=== PATIENT | male | born 1935 | race Caucasian/White ===

== ENCOUNTER 2019-03-06 07:01 | Emergency (ER) | payer OTHER, MEDICARE ==
[~2019-03-06] VITALS: Ht 165.1 cm; Wt 87.1 kg
[~2019-03-06 07:01] MED LIST: AMPYRA10 MG; AMPYRA10 MG PO; AZAT50 PO; COPAXONE; Co Q-1010 MG PO; DIAZ5EL; FISH1000 PO; FOLBIC RF TABL1 EACH PO; LEVSOD75 PO; MAGOXI400 PO; NAPR500ERA PO; Solu-Medrol1000 MG IJ; TRIHYD253B PO; UROCIT-K15 MEQ PO; [UNRECOGNIZED DRUG - OTHER]; [UNRECOGNIZED DRUG - OTHER]; [UNRECOGNIZED DRUG - REMARK] MC
[2019-03-06 07:20] LABS: Calcium, Ionized (POC) 1.17 mmol/L (1.10-1.46); Chloride (POC) 102 mmol/L (98-108); Creatinine (POC) 1.4 mg/dL (0.8-1.3); Glucose (ISTAT POC) 128 mg/dL (70-99); Potassium (POC) 3.4 mmol/L (3.5-5.5); Sodium (POC) 141 mmol/L (135-148); Total CO2 (POC) 30 mmol/L (21-32)
[2019-03-06 07:22] LABS: BASOPHILS ABSOLUTE AUTO 0.03 K/mm3 (0.00-0.23); BASOPHILS PERCENT AUTO 0 % (0-2); EOSINOPHILS ABSOLUTE AUTO 0.15 K/mm3 (0.00-0.68); EOSINOPHILS PERCENT AUTO 1 % (0-6); Hemoglobin 15.1 g/dL (13.5-17.5); IMMATURE GRAN ABSOLUTE AUTO 0.04 K/mm3 (0.00-0.10); IMMATURE GRAN PERCENT AUTO 0 % (0-1); LYMPHOCYTES ABSOLUTE AUTO 0.59 K/mm3 (0.84-5.20); LYMPHOCYTES PERCENT AUTO 5 % (21-46); MONOCYTES ABSOLUTE AUTO 1.59 K/mm3 (0.16-1.47); MONOCYTES PERCENT AUTO 13 % (4-13); Mean Corpuscular HGB 32.2 pg (26.0-34.0); Mean Corpuscular HGB Conc 33.6 g/dL (31.5-36.5); Mean Corpuscular Volume 96 fL (80-100); Mean Platelet Volume 9.4 fL (9.1-12.4); NEUTROPHILS ABSOLUTE AUTO 9.53 K/mm3 (1.96-9.15); NEUTROPHILS PERCENT AUTO 80 % (41-73); Platelet Count 293 K/mm3 (150-400); RDW Coefficient Variation 13.8 % (11.7-14.2); RDW Standard Deviation 48.5 fL (35.1-46.3); Red Blood Cell Count 4.69 M/mm3 (4.30-5.90); White Blood Cell Count 11.93 K/mm3 (4.00-11.30)
[2019-03-06 07:47] LABS: Albumin, Blood 3.3 g/dL (3.4-5.0); Albumin/Globulin Ratio 0.9 (0.8-1.8); Bilirubin, Total 0.6 mg/dL (0.1-1.0); Bun/Creatinine Ratio 21.9 (12.0-20.0); Calcium, Blood 9.4 mg/dL (8.5-10.1); Creatinine, Blood 1.28 mg/dL (0.60-1.20); Globulin, Blood 3.8 g/dL (2.2-4.0); Potassium, Blood 3.5 mmol/L (3.5-5.5); Total Protein, Blood 7.1 g/dL (6.4-8.2)
[2019-03-06 09:34] LABS: Source, Urine Clean Catch
[2019-03-06 09:36] LABS: Bilirubin, Urine Neg (Neg); Blood, Urine 5+ (Neg); Glucose Qualitative, Urine Neg (Neg); Ketones, Urine Neg (Neg); Leukocyte Esterase, Urine 3+ (Neg); Nitrite, Urine Pos (Neg); Protein, Urine 3+ (Neg); Urobilinogen, Urine NORM (Normal)
[2019-03-06 09:59] LABS: Appearance, Urine Cloudy (Clear); Color, Urine Yellow (P-Yellow)
[2019-03-06 10:01] LABS: Bacteria Many /hpf; Red Blood Cells, Urine 25-50 /hpf (0-2); Squamous Epithelial Cells Few /hpf (Few); White Blood Cells, Urine 50-100 /hpf (0-5)
[2019-03-06] MEDS ORDERED: CEFP200 PO (10:39)
== END 2019-03-06 11:41 | disposition home or self-care (01) ==
LOC: ER 07:01
PROVIDERS: Emergency Medicine
DX: N30.91 Cystitis, unspecified with hematuria (principal); N21.0 Calculus in bladder; D72.829 Elevated white blood cell count, unspecified; Z88.0 Allergy status to penicillin; Z79.899 Other long term (current) drug therapy
CPT/HCPCS: 51701; 74177; 80047; 80053; 81001; 83690; 85014; 85025; 87086; 93005; 93010; 96361-59; 96365-59; 96375-59; 99284-25; J0696; J2405; J3010; J7030; Q9967

== ENCOUNTER 2019-03-28 20:41 | Emergency (ER) | payer OTHER, MEDICARE ==
[~2019-03-28] VITALS: Ht 167.6 cm; Wt 83.9 kg
[~2019-03-28 20:41] MED LIST changes: +CEFP200 PO
== END 2019-03-29 01:22 | disposition home or self-care (01) ==
LOC: ER 20:41
DX: M25.552 Pain in left hip (principal); Z88.0 Allergy status to penicillin; Z79.899 Other long term (current) drug therapy; W18.30XA Fall on same level, unspecified, initial encounter; Y92.002 Bathroom of unspecified non-institutional (private) residence as the place of occurrence of the external cause
CPT/HCPCS: 72192; 73502; 93005; 93010; 99284-25; A9270; A9270-GY

== ENCOUNTER 2021-03-06 22:08 | Inpatient (IN) | payer OTHER ==
[~2021-03-06] VITALS: Ht 175.3 cm; Wt 92.2 kg
[2021-03-06 22:35] LABS: BASOPHILS ABSOLUTE AUTO 0.03 K/mm3 (0.00-0.23); BASOPHILS PERCENT AUTO 0 % (0-2); EOSINOPHILS ABSOLUTE AUTO 0.03 K/mm3 (0.00-0.68); EOSINOPHILS PERCENT AUTO 0 % (0-6); Hemoglobin 15.5 g/dL (13.5-17.5); IMMATURE GRAN ABSOLUTE AUTO 0.09 K/mm3 (0.00-0.10); IMMATURE GRAN PERCENT AUTO 1 % (0-1); LYMPHOCYTES ABSOLUTE AUTO 0.44 K/mm3 (0.84-5.20); LYMPHOCYTES PERCENT AUTO 3 % (21-46); MONOCYTES ABSOLUTE AUTO 0.11 K/mm3 (0.16-1.47); MONOCYTES PERCENT AUTO 1 % (4-13); Mean Corpuscular HGB 31.4 pg (26.0-34.0); Mean Corpuscular HGB Conc 32.3 g/dL (31.5-36.5); Mean Corpuscular Volume 97 fL (80-100); Mean Platelet Volume 9.4 fL (9.1-12.4); NEUTROPHILS ABSOLUTE AUTO 16.16 K/mm3 (1.96-9.15); NEUTROPHILS PERCENT AUTO 96 % (41-73); Platelet Count 338 K/mm3 (150-400); RDW Coefficient Variation 14.1 % (11.7-14.2); Red Blood Cell Count 4.93 M/mm3 (4.30-5.90); White Blood Cell Count 16.86 K/mm3 (4.00-11.30)
[2021-03-06 22:54] LABS: Albumin, Blood 3.3 g/dL (3.4-5.0); Albumin/Globulin Ratio 0.7 (0.8-1.8); Bilirubin, Total 0.6 mg/dL (0.1-1.0); Bun/Creatinine Ratio 18.7 (12.0-20.0); Calcium, Blood 10.1 mg/dL (8.5-10.1); Creatinine, Blood 1.71 mg/dL (0.60-1.20); Globulin, Blood 4.9 g/dL (2.2-4.0); Potassium, Blood 4.3 mmol/L (3.5-5.5); Total Protein, Blood 8.2 g/dL (6.4-8.2)
[2021-03-06 22:55] LABS: Source, Urine Catheter
[2021-03-06 23:11] LABS: Appearance, Urine Cloudy (Clear); Bilirubin, Urine Neg (Neg); Blood, Urine 2+ (Neg); Color, Urine Yellow (P-Yellow); Glucose Qualitative, Urine Neg (Neg); Ketones, Urine Neg (Neg); Leukocyte Esterase, Urine 3+ (Neg); Nitrite, Urine Neg (Neg); Protein, Urine 2+ (Neg); Specific Gravity, Urine 1.015 (1.003-1.022); Urobilinogen, Urine NORM (Normal)
[2021-03-06 23:31] LABS: Amorphous Light (0-Heavy); Bacteria Many /hpf; Squamous Epithelial Cells Rare /hpf (Few); White Blood Cells, Urine 25-50 /hpf (0-5)
[2021-03-06 23:45] LABS: Influenza A, PCR NEGATIVE (NEGATIVE); Influenza B, PCR NEGATIVE (NEGATIVE); Resp Syncytial Virus, PCR NEGATIVE (NEGATIVE); SARS-Cov-2 (COVID-19) PCR, MMC NEGATIVE (NEGATIVE)
[2021-03-07 05:05] LABS: BASOPHILS ABSOLUTE AUTO 0.07 K/mm3 (0.00-0.23); BASOPHILS PERCENT AUTO 0 % (0-2); EOSINOPHILS PERCENT AUTO 0 % (0-6); Hematocrit 38.6 % (37.0-53.0); Hemoglobin 12.9 g/dL (13.5-17.5); IMMATURE GRAN ABSOLUTE AUTO 0.42 K/mm3 (0.00-0.10); IMMATURE GRAN PERCENT AUTO 1 % (0-1); LYMPHOCYTES ABSOLUTE AUTO 0.21 K/mm3 (0.84-5.20); LYMPHOCYTES PERCENT AUTO 1 % (21-46); MONOCYTES ABSOLUTE AUTO 1.38 K/mm3 (0.16-1.47); MONOCYTES PERCENT AUTO 4 % (4-13); Mean Corpuscular HGB 32.4 pg (26.0-34.0); Mean Corpuscular HGB Conc 33.4 g/dL (31.5-36.5); Mean Corpuscular Volume 97 fL (80-100); Mean Platelet Volume 10.2 fL (9.1-12.4); NEUTROPHILS ABSOLUTE AUTO 34.23 K/mm3 (1.96-9.15); NEUTROPHILS PERCENT AUTO 94 % (41-73); Platelet Count 305 K/mm3 (150-400); RDW Coefficient Variation 14.2 % (11.7-14.2); Red Blood Cell Count 3.98 M/mm3 (4.30-5.90); White Blood Cell Count 36.31 K/mm3 (4.00-11.30)
[2021-03-07 05:20] LABS: Calcium, Blood 8.9 mg/dL (8.5-10.1); Creatinine, Blood 1.85 mg/dL (0.60-1.20); Potassium, Blood 3.5 mmol/L (3.5-5.5)
--- NOTE | 2021-03-07 06:26 | NUR ---
ASSUMED CARE OF PATIENT AT 0356. A/OX4. CHRONIC PAIN IN R KNEE 11/13. GENERALIZED WEAKNESS, WHEELCHAIR DEPENDENT AT HOME. MAINTAINING ABOVE 92% ON RA, LS CLEAR UPPER AND DIM AT BASES. PATIENT IS NOTED TO BE TACHYPNEIC WITH RR UP TO 26. ON TELEMETRY ST IN 110'S WITH 1ST DEGREE HB. +1 PEDALS AND RADIALS BL. CONDOM CATH IN PLACE DRAINING CLOUDY YELLOW URINE. BP HAS BEEN SOFT WITH MAP IN 60-65, PATIENT RECEIVED ANOTHER 1L BOLUS AND MAP IMPROVED TO STAYING AROUND 65-70. WILL REPORT TO ONCOMING RN.
[2021-03-07] MEDS ORDERED: FISH OIL PO (10:02)
[2021-03-07] MEDS ORDERED: SYNTHROID75 MCG PO (10:03)
[2021-03-07] MEDS ORDERED: DYAZIDE 37.5-21 EACH PO (10:03)
[2021-03-07] MEDS ORDERED: POTASSIUM CITRA PO (10:03)
[2021-03-07] MEDS ORDERED: AREDS PO (10:05)
--- NOTE | 2021-03-07 11:36 | NUR ---
pt arrivedTO THE MEDICAL FLOOR FROM THE PCU VIA BED. PT IS A/OX3 [place], APPEARS TO BE BREATHING EASILY ON RA AT THIS TIME. PT DENIED HAVING ANY PAIN, THE PT WAS ORIENTED TO THE ROOM CALL SYSTEM. CALL LIGHT IN REACH WILL CONTINUE TO MONITOR AND ASSESS FOR CHANGES
--- NOTE | 2021-03-07 16:42 | NUR ---
PT IS A/OX3, PLEASANT AND COOPERATIVE. [place],. THE PT IS UP WITH ASSIST TO THE BSC. THE APPEARS TO BE BREATHING EASILY AT THIS TIME ON RA. THE PT DENIES ANY PAIN AT THIS TIME. PTS WAS IN TO VISIT THIS AFTERNOON. CALL LIGHT IN REACH. WILL CONTINUE TO MONITOR AND ASSESS FOR CHANGES
--- NOTE | 2021-03-08 04:16 | NUR ---
PROGRAM SUPPORT SPECIALIST SUMMARY ADMITTED FOR UTI/SEPSIS. PT IS FULL CODE. CONTINUED ABX THERAPY. PT IS ALERT AND ORIENTED BUT WAKES UP SLIGHTLY CONFUSED ABOUT TIME. CONTINUED LR AT 100 ML/HR. NO COMPLAINTS OF PAIN. MULTIPLE INCONTINENT VOIDS. NO OTHER CONCERNS THIS SHIFT.
[2021-03-08 04:48] LABS: BASOPHILS ABSOLUTE AUTO 0.03 K/mm3 (0.00-0.23); BASOPHILS PERCENT AUTO 0 % (0-2); EOSINOPHILS PERCENT AUTO 1 % (0-6); Hematocrit 34.4 % (37.0-53.0); Hemoglobin 11.5 g/dL (13.5-17.5); IMMATURE GRAN ABSOLUTE AUTO 0.09 K/mm3 (0.00-0.10); IMMATURE GRAN PERCENT AUTO 1 % (0-1); LYMPHOCYTES ABSOLUTE AUTO 0.72 K/mm3 (0.84-5.20); LYMPHOCYTES PERCENT AUTO 4 % (21-46); MONOCYTES ABSOLUTE AUTO 1.22 K/mm3 (0.16-1.47); MONOCYTES PERCENT AUTO 7 % (4-13); Mean Corpuscular HGB 31.9 pg (26.0-34.0); Mean Corpuscular HGB Conc 33.4 g/dL (31.5-36.5); Mean Corpuscular Volume 96 fL (80-100); Mean Platelet Volume 10.4 fL (9.1-12.4); NEUTROPHILS ABSOLUTE AUTO 14.48 K/mm3 (1.96-9.15); NEUTROPHILS PERCENT AUTO 87 % (41-73); Platelet Count 219 K/mm3 (150-400); RDW Coefficient Variation 14.6 % (11.7-14.2); RDW Standard Deviation 50.8 fL (35.1-46.3); White Blood Cell Count 16.74 K/mm3 (4.00-11.30)
[2021-03-08 05:45] LABS: Alanine Aminotransfer (ALT/SGP 23 U/L (12-78); Albumin, Blood 2.3 g/dL (3.4-5.0); Alk Phos 58 U/L (50-136); Anion Gap 7 mmol/L (6-16); Aspartate Aminotrans (AST/SGOT 17 U/L (12-37); Bilirubin, Total 0.3 mg/dL (0.1-1.0); Blood Urea Nitrogen 33 mg/dL (8-24); Bun/Creatinine Ratio 19.5 (12.0-20.0); CO2, Blood 27 mmol/L (21-32); Calcium, Blood 8.6 mg/dL (8.5-10.1); Chloride, Blood 108 mmol/L (98-108); Creatinine, Blood 1.69 mg/dL (0.60-1.20); Glomerular Filtration Rate 39 (60-); Glucose, Blood 129 mg/dL (70-99); Magnesium, Blood 1.9 mg/dL (1.6-2.4); Potassium, Blood 3.6 mmol/L (3.5-5.5); Sodium, Blood 142 mmol/L (136-145)
[2021-03-08 05:46] LABS: Albumin/Globulin Ratio 0.7 (0.8-1.8); C-REACTIVE PROTEIN, EXT RANGE >19.000 mg/dL (0.000-0.300); Globulin, Blood 3.4 g/dL (2.2-4.0); Total Protein, Blood 5.7 g/dL (6.4-8.2)
--- NOTE | 2021-03-08 14:00 | NUR ---
BLOOD CULTURE RESULTS RECEIVED CALL FROM [facility] IN REGARDS TO PT's CULTURE RESULTS. NOTIFIED DR. SPANGLER. NO FURTHER ORDERS AT THIS TIME.
--- NOTE | 2021-03-08 16:50 | NUR ---
SHIFT SUMMARY PT IS AAOX3, [place], PLEASANT AND COOPERATIVE TO CARE. ABLE TO MAKE NEEDS KNOWN. NO C/O PAIN OR ANY DISCOMFORT THIS SHIFT. DENIES CP, SOB , OR N/V/D. NO ACUTE CHANGES NOTED TO PT THIS SHIFT. PT IS CONTINENT/INCONTINENT. DENIES DYSURIA OR ANY URINARY DISCOMFORT. BED AT LOWEST POSITION. CALL LIGHT WITHIN REACH.
--- NOTE | 2021-03-09 04:21 | NUR ---
CAD MANAGER SUMMARY ADMITTED FOR SEPSIS. PT IS A FULL CODE. CONTINUED ABX THERAPY. PT CONTINUES TO BE INCONTINENT AT NIGHT. PT HAS BASELINE TREMOR AND TWITCHING WHILE SLEEPING. NO OTHER CONCERNS THIS SHIFT.
[2021-03-09 04:59] LABS: BASOPHILS ABSOLUTE AUTO 0.02 K/mm3 (0.00-0.23); BASOPHILS PERCENT AUTO 0 % (0-2); EOSINOPHILS ABSOLUTE AUTO 0.21 K/mm3 (0.00-0.68); EOSINOPHILS PERCENT AUTO 2 % (0-6); Hematocrit 34.2 % (37.0-53.0); Hemoglobin 11.4 g/dL (13.5-17.5); IMMATURE GRAN ABSOLUTE AUTO 0.08 K/mm3 (0.00-0.10); IMMATURE GRAN PERCENT AUTO 1 % (0-1); LYMPHOCYTES PERCENT AUTO 6 % (21-46); MONOCYTES ABSOLUTE AUTO 1.22 K/mm3 (0.16-1.47); MONOCYTES PERCENT AUTO 9 % (4-13); Mean Corpuscular HGB 31.7 pg (26.0-34.0); Mean Corpuscular HGB Conc 33.3 g/dL (31.5-36.5); Mean Corpuscular Volume 95 fL (80-100); Mean Platelet Volume 10.6 fL (9.1-12.4); NEUTROPHILS ABSOLUTE AUTO 11.71 K/mm3 (1.96-9.15); NEUTROPHILS PERCENT AUTO 83 % (41-73); Platelet Count 237 K/mm3 (150-400); RDW Coefficient Variation 14.2 % (11.7-14.2); RDW Standard Deviation 49.9 fL (35.1-46.3); White Blood Cell Count 14.04 K/mm3 (4.00-11.30)
[2021-03-09 06:03] LABS: Bun/Creatinine Ratio 19.1 (12.0-20.0); Calcium, Blood 8.8 mg/dL (8.5-10.1); Creatinine, Blood 1.52 mg/dL (0.60-1.20)
[2021-03-09] MEDS ORDERED: ACET325 PO (15:09)
[2021-03-09] MEDS ORDERED: CEFD300 PO (15:11)
[2021-03-09] MEDS ORDERED: AZIT500 PO (15:11)
[2021-03-09] MEDS ORDERED: ANTIFUNGAL POWD71 GM TOP (15:12)
[2021-03-09] MEDS ORDERED: ONDA4ODT MM (15:13)
[2021-03-09] MEDS ORDERED: VISBIOME 112.51 EACH PO (15:13)
[2021-03-09] MEDS ORDERED: SULTRIDS PO (15:14)
--- NOTE | 2021-03-14 09:30 | NUR ---
Received referral from nurse career placement services counselor ([employer]) late on 03/11/2021. Patient discharged over the weekend- 03/09/2021 with orders for home health. Per referral today, patient elected [facility]. As patient discharged over the weekend, this gag writer did not contact patient at home to confirm the above. All supporting documentation for referral (face sheet, face to face, med list, H&P, discharge summary, and most recent PT notes) was sent to [facility] for review. No further interventions required. Melissa Burgos Referral Liaison
== END 2021-03-09 16:10 | disposition home health service (06) | DRG 871 ==
LOC: ER 22:08 → PCU 03-07 01:41 → MEDS 03-07 10:40
PROVIDERS: Family Medicine; Student in an Organized Health Care Education/Training Program; ADMIT Internal Medicine
DX: A40.8 Other streptococcal sepsis (principal); G92.8 Other toxic encephalopathy; J18.9 Pneumonia, unspecified organism; J96.01 Acute respiratory failure with hypoxia; N17.9 Acute kidney failure, unspecified; N12 Tubulo-interstitial nephritis, not specified as acute or chronic; G35 Multiple sclerosis; Z20.822 Contact with and (suspected) exposure to COVID-19; N18.30 Chronic kidney disease, stage 3 unspecified; R65.20 Severe sepsis without septic shock; Z88.0 Allergy status to penicillin; Z85.46 Personal history of malignant neoplasm of prostate; Z85.22 Personal history of malignant neoplasm of nasal cavities, middle ear, and accessory sinuses; Z98.890 Other specified postprocedural states; Z87.891 Personal history of nicotine dependence; Z79.899 Other long term (current) drug therapy; Z28.21 Immunization not carried out because of patient refusal
CPT/HCPCS: 0241U; 36415; 51701; 71045; 76770; 80048; 80053; 81001; 82947; 83605; 83735; 85025; 86140; 87040; 87076; 87086; 93005; 93010; 94640; 94762; 96365; 97161; 97530; 99285-25; A9270; J0456; J0696; J1644; J3370; J7030; J7050; J7120

== ENCOUNTER 2022-08-19 21:37 | Inpatient (IN) | payer OTHER ==
[~2022-08-19] VITALS: Ht 172.7 cm; Wt 89.4 kg
[~2022-08-19 21:37] MED LIST changes: +ACET325 PO; +ANTIFUNGAL POWD71 GM TOP; +AREDS PO; +AZIT500 PO; +CEFD300 PO; +DYAZIDE 37.5-21 EACH PO; +EUTHYROX88 MCG PO; +FISH OIL PO; +ONDA4ODT MM; +POTASSIUM CITRA PO; +SULTRIDS PO; +VISBIOME 112.51 EACH PO
[2022-08-19 22:46] LABS: BASOPHILS ABSOLUTE AUTO 0.05 K/mm3 (0.00-0.23); BASOPHILS PERCENT AUTO 0 % (0-2); EOSINOPHILS ABSOLUTE AUTO 0.11 K/mm3 (0.00-0.68); EOSINOPHILS PERCENT AUTO 1 % (0-6); Hematocrit 36.1 % (37.0-53.0); Hemoglobin 12.2 g/dL (13.5-17.5); IMMATURE GRAN ABSOLUTE AUTO 0.36 K/mm3 (0.00-0.10); IMMATURE GRAN PERCENT AUTO 2 % (0-1); LYMPHOCYTES ABSOLUTE AUTO 1.48 K/mm3 (0.84-5.20); LYMPHOCYTES PERCENT AUTO 8 % (21-46); MONOCYTES ABSOLUTE AUTO 0.69 K/mm3 (0.16-1.47); MONOCYTES PERCENT AUTO 4 % (4-13); Mean Corpuscular HGB 31.2 pg (26.0-34.0); Mean Corpuscular HGB Conc 33.8 g/dL (31.5-36.5); Mean Corpuscular Volume 92 fL (80-100); Mean Platelet Volume 10.6 fL (9.1-12.4); NEUTROPHILS ABSOLUTE AUTO 14.98 K/mm3 (1.96-9.15); NEUTROPHILS PERCENT AUTO 85 % (41-73); Platelet Count 191 K/mm3 (150-400); RDW Coefficient Variation 15.2 % (11.7-14.2); RDW Standard Deviation 50.8 fL (35.1-46.3); Red Blood Cell Count 3.91 M/mm3 (4.30-5.90); White Blood Cell Count 17.67 K/mm3 (4.00-11.30)
[2022-08-19 23:03] LABS: Albumin, Blood 2.2 g/dL (3.4-5.0); Albumin/Globulin Ratio 0.6 (0.8-1.8); Bun/Creatinine Ratio 23.5 (12.0-20.0); Calcium, Blood 8.6 mg/dL (8.5-10.1); Creatinine, Blood 1.36 mg/dL (0.60-1.20); Globulin, Blood 3.9 g/dL (2.2-4.0); Magnesium, Blood 2.2 mg/dL (1.6-2.4); Potassium, Blood 4.1 mmol/L (3.5-5.5); Total Protein, Blood 6.1 g/dL (6.4-8.2)
[2022-08-19 23:11] LABS: International Normalized Ratio 1.2; Prothrombin Time Results 12.5 Sec (9.7-11.5)
[2022-08-19 23:48] LABS: Source, Urine Clean Catch
[2022-08-19 23:52] LABS: Bilirubin, Urine Neg (Neg); Blood, Urine 5+ (Neg); Glucose Qualitative, Urine Neg (Neg); Ketones, Urine Neg (Neg); Leukocyte Esterase, Urine 3+ (Neg); Nitrite, Urine Neg (Neg); Protein, Urine 3+ (Neg); Urobilinogen, Urine NORM (Normal)
[2022-08-20 00:09] LABS: Appearance, Urine Cloudy (Clear); Color, Urine Yellow (P-Yellow)
[2022-08-20 00:11] LABS: Amorphous Light (0-Heavy); Bacteria Many /hpf; Squamous Epithelial Cells Few /hpf (Few); White Blood Cells, Urine 25-50 /hpf (0-5)
[2022-08-20 00:27] LABS: Influenza A, PCR NEGATIVE (NEGATIVE); Influenza B, PCR NEGATIVE (NEGATIVE); Resp Syncytial Virus, PCR NEGATIVE (NEGATIVE); SARS-Cov-2 (COVID-19) PCR, MMC NEGATIVE (NEGATIVE)
[2022-08-20 01:00] VITALS: BP 127/48
--- NOTE | 2022-08-20 07:18 | NUR ---
SUMMARY PT ADMITTED TO PCU 20, PT IS A&O X3, AWAKE, ASSISTED TRANSFER TO BED, VSS, SPO2 >95% ON 2L O2 VIA NC, DENIES PAIN, SR 1ST DEGREE & BBB, CALL LIGHT & SAFETY EDUCATION PROVIDED, CALL LIGHT IN REACH, PT RESTING QUIETLY. REPORT GIVEN TO ONCOMING RN.
[2022-08-20 07:45] VITALS: BP 131/69
[2022-08-20 16:40] VITALS: BP 142/68
--- NOTE | 2022-08-20 18:43 | NUR ---
SHIFT SUMMARY PT A/OX4 AND COOPERATIVE OF CARE. PT CALLS APPROPIATE. VSS THROUGHOUT SHIFT. PT WAS ON 2L NC AT BEGINNING OF SHIFT, TITRATED TO RA, SATS REMAIN IN THE 90'S. NO REPORT OF CHEST PAIN/PRESSURE THROUGHOUT SHIFT. NO REPORT OF SOB/DYSPNEA THROUGHOUT SHIFT. PT WAS UP TO BSC FOR BM, 1 PERSON MODERATE ASSIST. PT ABLE TO ADJUST SELF IN BED DURING SHIFT, PT REMINDED TO TURN TO HIS SIDES PERIODICALLY. SWEET IN PLACE DRAINING TO GRAVITY, BLU URINE.
[2022-08-20 19:28] VITALS: BP 142/82
[2022-08-20 20:03] VITALS: BP 144/88
[2022-08-20] MEDS ORDERED: Ketoconazole15 GM TOP (23:58)
[2022-08-20] MEDS ORDERED: MICONAZOLE TOP (23:59)
[2022-08-21] MEDS ORDERED: MULVITA PO
[2022-08-21] MEDS ORDERED: OMEGA-3 FISH O1 EAC6 PO
[2022-08-21 01:48] VITALS: BP 152/71
[2022-08-21 05:01] LABS: Hematocrit 34.6 % (37.0-53.0); Hemoglobin 11.9 g/dL (13.5-17.5); Mean Corpuscular HGB 31.3 pg (26.0-34.0); Mean Corpuscular HGB Conc 34.4 g/dL (31.5-36.5); Mean Corpuscular Volume 91 fL (80-100); Mean Platelet Volume 10.9 fL (9.1-12.4); Platelet Count 197 K/mm3 (150-400); RDW Coefficient Variation 15.1 % (11.7-14.2); RDW Standard Deviation 49.5 fL (35.1-46.3); White Blood Cell Count 20.88 K/mm3 (4.00-11.30)
[2022-08-21 05:16] LABS: Bun/Creatinine Ratio 32.8 (12.0-20.0); Calcium, Blood 8.2 mg/dL (8.5-10.1); Creatinine, Blood 1.25 mg/dL (0.60-1.20)
[2022-08-21 07:38] VITALS: BP 164/84
--- NOTE | 2022-08-21 07:42 | NUR ---
AO, VSS, PLEASANT, DID NOT GET OOB DURING SHIFT. SCATTERED SCABS AND BRUISES NOTED ON SKIN ASSESSMENT. SCROTAL EXCORIATION NOTED DURING JOSÉ CARE, BARRIER CREAM APPLIED. GRAM POSITIVE COCCI IN CHAINS IN BLOOD CULTURE. STABLE ON RA. DENIES SOB, MINIMAL COUGHING.
[2022-08-21 16:20] VITALS: BP 148/64
--- NOTE | 2022-08-21 17:12 | NUR ---
SHIFT SUMMARY PT IS ALERT AND ORIENTED X4. LIFT ASSIST. PLS SEE OT NOTES. CHRONIC SWEET IN PLACE. NO BM TODAY. PT ABDOMEN IS DISTENDED AND FAVORS THE LEFT SIDE. DYSPNEA AT REST. PT STATES NORMAL FOR HIM. NO ACUTE CHANGES. PLAN FOR DISCHARGE TOMORROW.
[2022-08-21 20:02] VITALS: BP 155/67
[2022-08-22 03:34] VITALS: BP 154/65
[2022-08-22 05:38] LABS: Hematocrit 34.9 % (37.0-53.0); Hemoglobin 11.8 g/dL (13.5-17.5); Mean Corpuscular HGB 30.6 pg (26.0-34.0); Mean Corpuscular HGB Conc 33.8 g/dL (31.5-36.5); Mean Corpuscular Volume 91 fL (80-100); Platelet Count 235 K/mm3 (150-400); RDW Coefficient Variation 15.1 % (11.7-14.2); RDW Standard Deviation 49.1 fL (35.1-46.3); Red Blood Cell Count 3.85 M/mm3 (4.30-5.90); White Blood Cell Count 24.28 K/mm3 (4.00-11.30)
[2022-08-22 06:14] LABS: Bun/Creatinine Ratio 27.8 (12.0-20.0); Calcium, Blood 8.1 mg/dL (8.5-10.1); Creatinine, Blood 1.08 mg/dL (0.60-1.20); Potassium, Blood 3.5 mmol/L (3.5-5.5)
--- NOTE | 2022-08-22 06:32 | NUR ---
PT REQUIRES 4L 02 ON MASK TO MAINTAIN SATS IN MID-90'S. ALSO NOTICED WBC'S HAVE INCREASED SINCE BLOOD DRAW YESTERDAY. FREQUENT REPOSITIONING ASSISTANCE PROVIDED, REPORTS INCREASED DISCOMFORT IN THE BED TODAY. AO, PLEASANT, CALLS APPROPRIATELY. SWEET IN PLACE, SWEET CARE PROVIDED, PATENT.
[2022-08-22 07:12] VITALS: BP 128/54
--- NOTE | 2022-08-22 12:23 | NUR ---
RT AT BEDSIDE. DYSPNEA AT REST. 4L FACE MASK. LOW 80S ROOM AIR. PT ALERT IS ORIENTED X3.
[2022-08-22 13:12] LABS: Base Excess Venous 1.5 mmol/L; Bicarbonate Venous 25.9 mmol/L (24.0-30.0); PCO2 Venous 35.4 mmHg (38-42); pH Blood Venous 7.46 (7.34-7.37)
--- NOTE | 2022-08-22 14:54 | NUR ---
LATE ENTRY 1230 PT DISORIENTED AND ANXIOUS. CURRENTLY ON 4L. NOTIFIED. PLS SEE ORDERS
--- NOTE | 2022-08-22 14:55 | NUR ---
PT IS MORE ALERT AND ORIENTED X4. IS AT BEDSIDE. 4L NC. REPOSITIONED. PT STILL HAS DYSPNEA AT REST
[2022-08-22 15:07] VITALS: BP 131/66
--- NOTE | 2022-08-22 16:55 | NUR ---
SHIFT SUMMARY- PT IS ALERT AND ORIENTED X4. 4L NC SAT >92%. PT AND OT EVALUATION TODAY. PLS SEE NOTES. PT IS CURRENTLY RESTING COMFORTABLEY IN BED. ABLE TO MAKE NEEDS KNOWN. PT HAD EPISODE OF DECREASED ORIENTATION TODAY BUT HAS RETURNED TO BASELINE SO FAR THIS SHIFT.
[2022-08-22 19:22] VITALS: BP 154/61
[2022-08-23 04:43] VITALS: BP 131/58
--- NOTE | 2022-08-23 05:26 | NUR ---
SHIFT SUMMARY: SHELDON AROUSES EASILY AND RESPONDS APPROPRIATELY. HE HAS RESTED INTERMITTENTLY THIS SHIFT. VSS, MAINTAINGING O2 SATS ON 4 L VIA NC, CONTINUOUS PULSE OX. IV TO R WRIST PATENT. PT REPORTS HE HAD A BOWEL MOVEMENT ON 08/21, WHICH HE STATES IS CONSISTENT WITH HIS NORMAL BOWEL PATTERN. PT STATES HE EXPECTS TO HAVE A BM TODAY, ENCOURAGED HIM TO NOTIFY STAFF AND EDUCATED ON BOWEL CARE IF HE DOES NOT PRODUCE A BM TODAY. PT DID HAVE ONE EPISODE WHEN HIS WATER "WENT DOWN THE WRONG PIPE" CAUSING PT TO COUGH AND WAS SHORT OF BREATH FOR A COUPLE OF MINUTES. PT RECOVERED WELL AND MAINTAINED O2 SATS. HE WAS ABLE TO SWALLOW HIS MEDICATIONS WHOLE WITH WATER WITHOUT ANY DIFFICULTY WHILE SITTING UPRIGHT. CHARTING SHOWS A NEGATIVE FLUID BALANCE. PT IS ABLE TO MAKE HIS NEEDS KNOWN AND REPORTS DECREASED SHORTNESS OF BREATH AFTER BREATHING TREATMENTS. ENCOURAGED PT TO CALL AND REQUEST PRN BREATHING TREATMENTS NEEDED. SWEET PATENT DRAINING DARK YELLOW URINE. PT IS LYING IN BED WITH THE CALL LIGHT IN REACH. WCTM UNTIL REPORT IS GIVEN TO DAY SHIFT RN.
[2022-08-23 07:41] VITALS: BP 121/40
[2022-08-23 16:53] VITALS: BP 121/43
--- NOTE | 2022-08-23 18:50 | NUR ---
SUMMARY- PT ALERT AND ORIENTED X4. PT GOT UP WITH PT TO CHAIR AFTER BREAKFAST AND SAT UP FOR ABOUT 3 HOURS, TOLERATED ACT WELL. OXYGEN FROM 4L THIS AM TO 2L, SATS REMAIN MID 90'S. PT HAS FAINT CRACKLES IN BASES. USING FLUTTER FAITHFULLY. PT HAS OCC GASPING EPISODES LASTING ABOUT 10 SECONDS, SEEMS LIKE A BREATHING HABBIT, HAS NOT NOT BEEN IN ANY RESP DISTRESS. PT USES CALL LIGHT. TOLERATING FOOD AND FLUID. HAS SWEET FOR RETENTION. FAMILY WISHES PT TO DC HOME WITH HOME HEALTH, THEY STATE THEY ARE COMORTABLE WITH HIS CARE. WILL REPORT TO GENIA ZELAYA.
[2022-08-23 19:47] VITALS: BP 147/61
[2022-08-24 03:18] VITALS: BP 145/57
--- NOTE | 2022-08-24 04:38 | NUR ---
SHIFT SUMMARY 86 YR M ADMITTED ON 08/20/22 FOR PNEUMONIA AND UTI. FULL CODE. NO ACUTE CHANGES THIS SHIFT. PT IS MAINTAINING O2 SATS IN THE 90'2 W/ 2L O2 BY NC. HE IS VERY PLEASANT AND COOPERATIVE WITH CARE. HE IS A 2 PERSON ASSIST TO STAND AND PIVOT TO BEDSIDE COMMODE, BUT HE IS VERY DIFFICULT TO MANEUVER. SWEET IS PATENT AND DRAINING TO GRAVITY.
[2022-08-24 05:23] LABS: Hemoglobin 11.7 g/dL (13.5-17.5); Mean Corpuscular HGB 30.7 pg (26.0-34.0); Mean Corpuscular HGB Conc 33.4 g/dL (31.5-36.5); Mean Corpuscular Volume 92 fL (80-100); Mean Platelet Volume 10.9 fL (9.1-12.4); Platelet Count 358 K/mm3 (150-400); RDW Coefficient Variation 15.6 % (11.7-14.2); Red Blood Cell Count 3.81 M/mm3 (4.30-5.90); White Blood Cell Count 24.16 K/mm3 (4.00-11.30)
[2022-08-24 05:59] LABS: Bun/Creatinine Ratio 23.6 (12.0-20.0); Calcium, Blood 8.7 mg/dL (8.5-10.1); Creatinine, Blood 0.93 mg/dL (0.60-1.20); Potassium, Blood 3.9 mmol/L (3.5-5.5)
[2022-08-24 07:52] VITALS: BP 131/60
[2022-08-24 12:01] LABS: Vancomycin, Trough 7.2 ug/mL (5.0-10.0)
[2022-08-24 15:35] VITALS: BP 145/57
--- NOTE | 2022-08-24 16:17 | NUR ---
SUMMARY- PT A/O X3-4, FORGETFUL, DOSES ON OFF THROUGHOUT THE DAY BUT AWAKENS EASILY. GOT UP WITH PT AND SAT IN CHAIR FOR ABOUT 3 HOURS THIS AFTERNOON. USES CALL LIGHT. GAIT BELT, WALKER 2 MAX PIVOT TX TO BED. LUNGS CLEAR, DIM BASES, USING FLUTTER. STATES PRODUCTIVE COUGH. CONT PULSE OX WITH SATS 94-97 %, 2L NC. FAMILY IS READY TO ACCEPT PT HOME TOMORROW WITH HOME HEALTH.
[2022-08-24 19:12] VITALS: BP 135/72
[2022-08-25 02:04] VITALS: BP 144/61
[2022-08-25 05:45] LABS: Hematocrit 32.3 % (37.0-53.0); Mean Corpuscular HGB 31.1 pg (26.0-34.0); Mean Corpuscular HGB Conc 34.1 g/dL (31.5-36.5); Mean Corpuscular Volume 91 fL (80-100); Mean Platelet Volume 10.7 fL (9.1-12.4); Platelet Count 415 K/mm3 (150-400); RDW Coefficient Variation 15.5 % (11.7-14.2); RDW Standard Deviation 50.5 fL (35.1-46.3); Red Blood Cell Count 3.54 M/mm3 (4.30-5.90); White Blood Cell Count 20.18 K/mm3 (4.00-11.30)
--- NOTE | 2022-08-25 05:48 | NUR ---
JUDITH SPENT MOST OF THE NIGHT SITTING IN HIS RECLINER WHICH HE STATES IS COMMON SLEEPING POSITION FOR HIM. NO COMPLAINTS OF PAIN OR DISCOMFORT, URINE APPEARS CLEAR AND YELLOW/BLU COMING FROM SWEET. BOTH BED AND CHAIR ALARM WERE SET FOR SAFETY SHELDON SET OFF BED ALARM TRYING TO GET HIMSELF FROM THE BED TO THE CHAIR BY HIMSELF. STAFF RAN INTO THE ROOM, PATIENT WAS YELLING FOR HELP LAYING CROSS WAY OVER THE BED.
[2022-08-25 07:51] VITALS: BP 125/67
[2022-08-25] MEDS ORDERED: LEVSOD75 PO (13:42)
[2022-08-25] MEDS ORDERED: DOCUZEN 8.6-501 EACH PO (13:44)
[2022-08-25] MEDS ORDERED: GUAI600T33 PO (13:44)
[2022-08-25] MEDS ORDERED: VISBIOME 112.51 EACH PO (13:45)
--- NOTE | 2022-08-25 14:12 | NUR ---
DISCHARGE CALLED PT . GAVE HER AN UPDATE. APPOINTMENT FOR [facility] ARRANGED, PICC LINE IN, OXYGEN DELIVERED, WAITING ON PRODUCE WRAPPER TO DO SCAN. CALLED [facility] TO CHECK ON WHERE PT IS ON THE LIST. PLAN TO CALL HER AT HOME WHEN ECHO GOES IN. CONTINUE POC.
[2022-08-25 15:03] VITALS: BP 149/58
--- NOTE | 2022-08-25 16:22 | NUR ---
ECHO ECHO HERE. CALLED FAMILY TO LET THEM KNOW. SHOULD BE HERE SOON. CONTINUE POC.
== END 2022-08-25 17:19 | disposition home health service (06) | DRG 871 ==
LOC: ER 21:37 → MEDS 08-20 05:14 → PCU 08-20 05:14 → MEDS 08-20 20:02 → ENPENDDIS 08-25 11:46 → MEDS 08-25 17:19
PROVIDERS: Internal Medicine; Student in an Organized Health Care Education/Training Program; ADMIT Internal Medicine
PROC: 3E03329 Introduction of Other Anti-infective into Peripheral Vein, Percutaneous Approach (ICD-10-PCS; principal; 2022-08-20)
PROC: 02HV33Z Insertion of Infusion Device into Superior Vena Cava, Percutaneous Approach (ICD-10-PCS; 2022-08-25)
DX: A41.81 Sepsis due to Enterococcus (principal); J18.9 Pneumonia, unspecified organism; J96.01 Acute respiratory failure with hypoxia; T83.511A Infection and inflammatory reaction due to indwelling urethral catheter, initial encounter; N39.0 Urinary tract infection, site not specified; J90 Pleural effusion, not elsewhere classified; R65.20 Severe sepsis without septic shock; N18.30 Chronic kidney disease, stage 3 unspecified; G35 Multiple sclerosis; R14.0 Abdominal distension (gaseous); C67.9 Malignant neoplasm of bladder, unspecified; I45.6 Pre-excitation syndrome; E03.9 Hypothyroidism, unspecified; Z20.822 Contact with and (suspected) exposure to COVID-19; Z87.891 Personal history of nicotine dependence; Z85.46 Personal history of malignant neoplasm of prostate; Z98.890 Other specified postprocedural states; Z88.0 Allergy status to penicillin; Z85.828 Personal history of other malignant neoplasm of skin; Z88.8 Allergy status to other drugs, medicaments and biological substances; Z79.2 Long term (current) use of antibiotics; Z86.79 Personal history of other diseases of the circulatory system; Y84.6 Urinary catheterization as the cause of abnormal reaction of the patient, or of later complication, without mention of misadventure at the time of the procedure
CPT/HCPCS: 0241U; 36415; 36569; 51702; 71045; 71046; 74176; 80048; 80053; 80202; 81001; 82803; 83605; 83735; 83880; 84145; 85025; 85027; 85610; 87040; 87077; 87086; 87186; 93005; 93010; 93306; 94640; 94664; 94760; 94761; 94762; 96374; 97110; 97162; 97166; 97530; 97535; 99285-25; A9270; C1751; J0456; J0692; J0696; J1650; J2930; J3370; J7030; J7050

== ENCOUNTER 2022-08-26 01:31 | Day surgery (SDC) | payer MEDICARE ==
[~2022-08-26 01:31] MED LIST changes: +DOCUZEN 8.6-501 EACH PO; +GUAI600T33 PO; +Ketoconazole15 GM TOP; +MICONAZOLE TOP; +MULVITA PO; +OMEGA-3 FISH O1 EAC6 PO
[2022-08-26 13:50] VITALS: BP 132/95
== END 2022-08-26 15:17 | disposition home or self-care (01) ==
LOC: ATC 01:31
DX: R78.81 Bacteremia (principal); B95.2 Enterococcus as the cause of diseases classified elsewhere; G35 Multiple sclerosis; N18.30 Chronic kidney disease, stage 3 unspecified; C61 Malignant neoplasm of prostate; Z87.891 Personal history of nicotine dependence; E03.9 Hypothyroidism, unspecified
CPT/HCPCS: J3370; J7050

== ENCOUNTER 2022-08-28 02:34 | Day surgery (SDC) | payer MEDICARE ==
[2022-08-28 10:05] VITALS: BP 122/60
== END 2022-08-28 11:56 | disposition home or self-care (01) ==
LOC: ATC 02:34
DX: A41.9 Sepsis, unspecified organism (principal); J96.01 Acute respiratory failure with hypoxia; N39.0 Urinary tract infection, site not specified; J18.9 Pneumonia, unspecified organism; C67.9 Malignant neoplasm of bladder, unspecified; G35 Multiple sclerosis; N18.30 Chronic kidney disease, stage 3 unspecified; E03.9 Hypothyroidism, unspecified
CPT/HCPCS: 96365; 96366; J3370; J7050

== ENCOUNTER 2022-08-29 02:40 | Day surgery (SDC) | payer MEDICARE ==
[2022-08-29 09:35] VITALS: BP 118/60
== END 2022-08-29 11:14 | disposition home or self-care (01) ==
LOC: ATC 02:40
DX: A41.9 Sepsis, unspecified organism (principal); J18.9 Pneumonia, unspecified organism; N39.0 Urinary tract infection, site not specified; J96.01 Acute respiratory failure with hypoxia; D49.4 Neoplasm of unspecified behavior of bladder; G35 Multiple sclerosis; N18.30 Chronic kidney disease, stage 3 unspecified; E03.9 Hypothyroidism, unspecified; Z87.891 Personal history of nicotine dependence
CPT/HCPCS: J3370; J7050

== ENCOUNTER 2022-08-30 01:30 | Day surgery (SDC) | payer MEDICARE ==
[~2022-08-30] VITALS: Ht 172.7 cm; Wt 89.4 kg
[2022-08-30 13:31] VITALS: BP 122/55
[2022-08-30 13:46] LABS: Creatinine, Blood 0.87 mg/dL (0.60-1.20); Vancomycin, Trough 12.8 ug/mL (5.0-10.0)
== END 2022-08-30 15:53 | disposition home or self-care (01) ==
LOC: ATC 01:30
PROVIDERS: Internal Medicine
DX: A41.9 Sepsis, unspecified organism (principal); J96.01 Acute respiratory failure with hypoxia; J18.9 Pneumonia, unspecified organism; N39.0 Urinary tract infection, site not specified; N18.30 Chronic kidney disease, stage 3 unspecified; G35 Multiple sclerosis; E03.9 Hypothyroidism, unspecified; C61 Malignant neoplasm of prostate
CPT/HCPCS: 80202; 82565; J3370; J7050

== ENCOUNTER 2022-08-31 01:44 | Day surgery (SDC) | payer MEDICARE ==
[2022-08-31 13:02] VITALS: BP 122/52
== END 2022-08-31 14:55 | disposition home or self-care (01) ==
LOC: ATC 01:44
DX: A41.9 Sepsis, unspecified organism (principal); G35 Multiple sclerosis; N18.30 Chronic kidney disease, stage 3 unspecified; Z87.891 Personal history of nicotine dependence; J96.01 Acute respiratory failure with hypoxia; J18.9 Pneumonia, unspecified organism; N39.0 Urinary tract infection, site not specified; C67.9 Malignant neoplasm of bladder, unspecified
CPT/HCPCS: J3370; J7050

== ENCOUNTER 2022-09-01 00:07 | Day surgery (SDC) | payer MEDICARE ==
[2022-09-01 09:34] VITALS: BP 148/60
== END 2022-09-01 11:44 | disposition home or self-care (01) ==
LOC: ATC 00:07
DX: A41.9 Sepsis, unspecified organism (principal); J96.01 Acute respiratory failure with hypoxia; J18.9 Pneumonia, unspecified organism; N39.0 Urinary tract infection, site not specified; N18.30 Chronic kidney disease, stage 3 unspecified; G35 Multiple sclerosis
CPT/HCPCS: J3370; J7050

== ENCOUNTER 2022-09-02 02:27 | Day surgery (SDC) | payer MEDICARE ==
[2022-09-02 10:16] VITALS: BP 153/60
[2022-09-02 10:28] LABS: Vancomycin, Trough 14.8 ug/mL (5.0-10.0)
== END 2022-09-02 12:40 | disposition home or self-care (01) ==
LOC: ATC 02:27
PROVIDERS: Internal Medicine
DX: A41.9 Sepsis, unspecified organism (principal); J96.01 Acute respiratory failure with hypoxia; J18.9 Pneumonia, unspecified organism; N39.0 Urinary tract infection, site not specified; N18.30 Chronic kidney disease, stage 3 unspecified; E03.9 Hypothyroidism, unspecified; Z87.891 Personal history of nicotine dependence; Z88.0 Allergy status to penicillin; Z88.1 Allergy status to other antibiotic agents; Z79.890 Hormone replacement therapy; Z79.899 Other long term (current) drug therapy; Z20.822 Contact with and (suspected) exposure to COVID-19
CPT/HCPCS: 80202; 82565; 96365; 96366; J3370; J7050

== ENCOUNTER 2022-09-04 03:21 | Day surgery (SDC) | payer MEDICARE ==
[2022-09-04 09:24] VITALS: BP 143/58
== END 2022-09-04 11:20 | disposition home or self-care (01) ==
LOC: ATC 03:21
DX: A41.9 Sepsis, unspecified organism (principal); J96.01 Acute respiratory failure with hypoxia; J18.9 Pneumonia, unspecified organism; C67.9 Malignant neoplasm of bladder, unspecified; G35 Multiple sclerosis; N18.30 Chronic kidney disease, stage 3 unspecified; E03.9 Hypothyroidism, unspecified
CPT/HCPCS: 96365; J3370; J7050

== ENCOUNTER 2022-09-06 00:48 | Day surgery (SDC) | payer MEDICARE ==
[2022-09-06 09:35] VITALS: BP 141/53
== END 2022-09-06 11:26 | disposition home or self-care (01) ==
LOC: ATC 00:48
DX: A41.9 Sepsis, unspecified organism (principal); J96.01 Acute respiratory failure with hypoxia; J18.9 Pneumonia, unspecified organism; N39.0 Urinary tract infection, site not specified; R14.0 Abdominal distension (gaseous); N31.2 Flaccid neuropathic bladder, not elsewhere classified; I05.0 Rheumatic mitral stenosis; N18.30 Chronic kidney disease, stage 3 unspecified; E03.9 Hypothyroidism, unspecified
CPT/HCPCS: 96365; 96366; J3370; J7050

== ENCOUNTER 2022-09-07 01:26 | Day surgery (SDC) | payer MEDICARE ==
[2022-09-07 09:32] VITALS: BP 138/77
== END 2022-09-07 11:37 | disposition home or self-care (01) ==
LOC: ATC 01:26
DX: A41.9 Sepsis, unspecified organism (principal); J18.9 Pneumonia, unspecified organism; N39.0 Urinary tract infection, site not specified; J96.01 Acute respiratory failure with hypoxia; R14.0 Abdominal distension (gaseous); D49.4 Neoplasm of unspecified behavior of bladder; G35 Multiple sclerosis; N18.30 Chronic kidney disease, stage 3 unspecified; Z87.891 Personal history of nicotine dependence; Z79.890 Hormone replacement therapy; Z79.899 Other long term (current) drug therapy
CPT/HCPCS: 96365; 96366; J3370; J7050